=== PATIENT | female | born 1965 | race Native Hawaiian/Other Pacific Islander ===

== ENCOUNTER 2016-10-28 14:11 | Emergency (ER) | payer OTHER ==
[~2016-10-28] VITALS: Ht 167.6 cm; Wt 72.6 kg
[2016-10-28 14:31] VITALS: TEMP 98.4
[2016-10-28 15:20] LABS: PLATELET COUNT 235 K/uL (152-353)
[2016-10-28 15:29] LABS: POTASSIUM 3.6 mmol/L (3.6-5.2); SODIUM 138 mmol/L (136-145)
[2016-10-28 16:45] VITALS: BP 156/99
== END 2016-10-28 16:45 | disposition home or self-care (01) ==
LOC: ED 14:11
DX: R51 Headache (principal); R11.2 Nausea with vomiting, unspecified; I10 Essential (primary) hypertension; J32.9 Chronic sinusitis, unspecified
CPT/HCPCS: 36415; 80053; 82150; 83690; 85027; 96361; 96365; 99284; J0696